=== PATIENT | male | born 1990 | race Caucasian/White ===

== ENCOUNTER 2017-07-27 16:17 | Emergency (ER) | payer MEDICAID ==
[~2017-07-27] VITALS: Ht 172.7 cm; Wt 136.0 kg
[~2017-07-27 16:17] MED LIST: BUPR1FIL3 SL; CLON-527 PO; DOCU100C23 PO; HYDR-3972 PO; IBUP-1986 PO; QUET25TA34 PO; VENL-190; ZOLP10TA5 PO
[2017-07-27 16:27] VITALS: BP 129/83
[2017-07-27] MEDS ORDERED: BUPIVAcaine/PF 2.5 mg/ml (0.25%) 30ml vial IJ ONE (17:40)
[2017-07-27] MEDS ORDERED: TETanus/Pertussis (Acell)/Diphther VAC/PF (Tdap-Adult) 0.5ml syringe IM ONE (17:40)
[2017-07-27] MEDS ORDERED: CEPH500C5 PO (18:34)
== END 2017-07-27 18:57 | disposition home or self-care (01) ==
LOC: ER 16:17
DX: S61.217D Laceration without foreign body of left little finger without damage to nail, subsequent encounter (principal); G89.29 Other chronic pain; F12.10 Cannabis abuse, uncomplicated; F15.10 Other stimulant abuse, uncomplicated; F11.10 Opioid abuse, uncomplicated; Z56.0 Unemployment, unspecified; Z98.890 Other specified postprocedural states; Z88.2 Allergy status to sulfonamides; Z88.8 Allergy status to other drugs, medicaments and biological substances; Z79.899 Other long term (current) drug therapy; W26.0XXD Contact with knife, subsequent encounter
CPT/HCPCS: 90471; 90715; 99283; A6255; J3490

== ENCOUNTER 2018-05-29 16:51 | Emergency (ER) | payer MEDICAID ==
[~2018-05-29] VITALS: Ht 182.9 cm; Wt 109.1 kg
[~2018-05-29 16:51] MED LIST changes: +CEPH500C5 PO; +DOCU-273 PO; -DOCU100C23 PO
[2018-05-29 17:07] VITALS: BP 138/67
== END 2018-05-29 17:48 | disposition home or self-care (01) ==
LOC: ER 16:52
DX: T65.891A Toxic effect of other specified substances, accidental (unintentional), initial encounter (principal); G89.29 Other chronic pain; F12.90 Cannabis use, unspecified, uncomplicated; F15.90 Other stimulant use, unspecified, uncomplicated; F11.90 Opioid use, unspecified, uncomplicated; Z56.0 Unemployment, unspecified; Z98.890 Other specified postprocedural states; Z88.2 Allergy status to sulfonamides; Z88.5 Allergy status to narcotic agent; Z88.8 Allergy status to other drugs, medicaments and biological substances; Y92.89 Other specified places as the place of occurrence of the external cause
CPT/HCPCS: 99281

== ENCOUNTER 2018-05-31 22:33 | Emergency (ER) | payer MEDICAID ==
[~2018-05-31] VITALS: Ht 177.8 cm; Wt 120.0 kg
[2018-05-31] MEDS ORDERED: QUET25TA PO (23:35)
[2018-05-31] MEDS ORDERED: clonazePAM 1mg tablet PO ONE (23:45)
[2018-05-31 23:48] VITALS: BP 133/75
== END 2018-06-01 00:02 | disposition home or self-care (01) ==
LOC: ER 22:35
DX: F32.9 Major depressive disorder, single episode, unspecified (principal); F41.9 Anxiety disorder, unspecified; F12.90 Cannabis use, unspecified, uncomplicated; F15.90 Other stimulant use, unspecified, uncomplicated; F11.90 Opioid use, unspecified, uncomplicated; G89.29 Other chronic pain; Z56.0 Unemployment, unspecified; Z88.2 Allergy status to sulfonamides; Z88.8 Allergy status to other drugs, medicaments and biological substances; Z79.899 Other long term (current) drug therapy
CPT/HCPCS: 99284

== ENCOUNTER 2018-06-29 13:46 | Emergency (ER) | payer MEDICAID ==
[~2018-06-29] VITALS: Ht 177.8 cm; Wt 108.0 kg
[~2018-06-29 13:46] MED LIST changes: +CEPH-571 PO; +QUET25TA PO
[2018-06-29 13:51] VITALS: BP 133/77
== END 2018-06-29 14:15 | disposition left against medical advice (07) ==
LOC: ER 13:47
DX: R22.2 Localized swelling, mass and lump, trunk (principal); G89.29 Other chronic pain; M54.9 Dorsalgia, unspecified; F12.90 Cannabis use, unspecified, uncomplicated; F15.90 Other stimulant use, unspecified, uncomplicated; F11.90 Opioid use, unspecified, uncomplicated; Z56.0 Unemployment, unspecified; Z88.6 Allergy status to analgesic agent; Z88.2 Allergy status to sulfonamides; Z88.8 Allergy status to other drugs, medicaments and biological substances
CPT/HCPCS: 99281

== ENCOUNTER 2018-07-18 08:56 | Emergency (ER) | payer MEDICAID ==
[~2018-07-18] VITALS: Ht 175.3 cm; Wt 109.1 kg
[2018-07-18 09:13] VITALS: BP 129/77
--- NOTE | 2018-07-18 09:31 | NUR ---
per triage nurse, she said she felt that the pt was "off" and not following direction, I let Dr. Franklin know of this feeling, he states he will address
[2018-07-18] MEDS ORDERED: acetaminophen 325mg tablet PO ONE (09:45)
[2018-07-18] MEDS ORDERED: TETanus/Pertussis (Acell)/Diphther VAC/PF (Tdap-Adult) 0.5ml syringe IM ONE (09:45)
== END 2018-07-18 10:54 | disposition home or self-care (01) ==
LOC: ER 08:57
DX: S06.0X0A Concussion without loss of consciousness, initial encounter (principal); S01.01XA Laceration without foreign body of scalp, initial encounter; G89.29 Other chronic pain; F12.90 Cannabis use, unspecified, uncomplicated; F15.90 Other stimulant use, unspecified, uncomplicated; F11.90 Opioid use, unspecified, uncomplicated; Z56.0 Unemployment, unspecified; Z98.890 Other specified postprocedural states; Z88.2 Allergy status to sulfonamides; Z88.8 Allergy status to other drugs, medicaments and biological substances; Z79.899 Other long term (current) drug therapy; Y04.2XXA Assault by strike against or bumped into by another person, initial encounter; Y93.89 Activity, other specified; Y92.89 Other specified places as the place of occurrence of the external cause; Y99.8 Other external cause status
CPT/HCPCS: 70450; 70486; 90471; 90715; 99284

== ENCOUNTER 2018-07-25 07:11 | Emergency (ER) | payer MEDICAID ==
[~2018-07-25] VITALS: Ht 177.8 cm; Wt 106.0 kg
[2018-07-25 07:16] VITALS: BP 122/74
[2018-07-25] MEDS ORDERED: HYDROcodone/acetaminophen 10/325mg tab PO ONE (07:45)
[2018-07-25] MEDS ORDERED: HYDR-4353 PO (07:49)
== END 2018-07-25 08:01 | disposition home or self-care (01) ==
LOC: ER 07:13
DX: S39.012A Strain of muscle, fascia and tendon of lower back, initial encounter (principal); S00.11XA Contusion of right eyelid and periocular area, initial encounter; R23.4 Changes in skin texture; G89.29 Other chronic pain; F12.90 Cannabis use, unspecified, uncomplicated; F15.90 Other stimulant use, unspecified, uncomplicated; F11.90 Opioid use, unspecified, uncomplicated; Z56.0 Unemployment, unspecified; Z98.890 Other specified postprocedural states; Z88.2 Allergy status to sulfonamides; Z88.8 Allergy status to other drugs, medicaments and biological substances; Z79.899 Other long term (current) drug therapy; X58.XXXA Exposure to other specified factors, initial encounter; Y93.89 Activity, other specified; Y92.89 Other specified places as the place of occurrence of the external cause; Y99.8 Other external cause status
CPT/HCPCS: 99283

== ENCOUNTER 2018-08-03 06:32 | Emergency (ER) | payer MEDICAID ==
[~2018-08-03] VITALS: Ht 170.2 cm; Wt 70.0 kg
[~2018-08-03 06:32] MED LIST changes: -CEPH500C5 PO; +HYDR-4353 PO
[2018-08-03 07:20] VITALS: BP 125/76
== END 2018-08-03 07:22 | disposition home or self-care (01) ==
LOC: ER 06:33
DX: R22.2 Localized swelling, mass and lump, trunk (principal); G89.29 Other chronic pain; F12.90 Cannabis use, unspecified, uncomplicated; F15.90 Other stimulant use, unspecified, uncomplicated; F11.90 Opioid use, unspecified, uncomplicated; Z98.890 Other specified postprocedural states; Z88.2 Allergy status to sulfonamides; Z88.8 Allergy status to other drugs, medicaments and biological substances; Z79.899 Other long term (current) drug therapy; Z56.0 Unemployment, unspecified
CPT/HCPCS: 99281; 99283

== ENCOUNTER 2018-09-09 14:29 | Emergency (ER) | payer MEDICAID ==
[~2018-09-09] VITALS: Ht 177.8 cm; Wt 109.1 kg
[~2018-09-09 14:29] MED LIST changes: -HYDR-4353 PO
[2018-09-09 14:57] VITALS: BP 130/70
[2018-09-09] MEDS ORDERED: HYDROcodone/acetaminophen 10/325mg tab PO ONE (15:30)
[2018-09-09] MEDS ORDERED: ketorolac trometh inj. 60 MG/2 ML VIAL IM ONE (15:30)
== END 2018-09-09 16:11 | disposition home or self-care (01) ==
LOC: ER 14:30
DX: S39.012A Strain of muscle, fascia and tendon of lower back, initial encounter (principal); G89.29 Other chronic pain; F12.90 Cannabis use, unspecified, uncomplicated; F15.90 Other stimulant use, unspecified, uncomplicated; F11.90 Opioid use, unspecified, uncomplicated; Z88.2 Allergy status to sulfonamides; Z88.8 Allergy status to other drugs, medicaments and biological substances; Z79.899 Other long term (current) drug therapy; Z56.0 Unemployment, unspecified; W18.39XA Other fall on same level, initial encounter; Y93.01 Activity, walking, marching and hiking; Y92.89 Other specified places as the place of occurrence of the external cause; Y99.8 Other external cause status
CPT/HCPCS: 96372; 99284; J1885

== ENCOUNTER 2018-09-11 02:12 | Emergency (ER) | payer MEDICAID ==
[~2018-09-11] VITALS: Ht 167.6 cm; Wt 80.0 kg
[2018-09-11] MEDS ORDERED: ketorolac trometh inj. 60 MG/2 ML VIAL IM ONE (02:40)
[2018-09-11 03:03] VITALS: BP 131/84
== END 2018-09-11 03:08 | disposition home or self-care (01) ==
LOC: ER 02:13
DX: K08.89 Other specified disorders of teeth and supporting structures (principal); R51 Headache; G89.29 Other chronic pain; F11.10 Opioid abuse, uncomplicated; F41.9 Anxiety disorder, unspecified; F12.10 Cannabis abuse, uncomplicated; F15.10 Other stimulant abuse, uncomplicated; Z56.0 Unemployment, unspecified; Z88.2 Allergy status to sulfonamides; Z88.8 Allergy status to other drugs, medicaments and biological substances
CPT/HCPCS: 96372; 99283; J1885

== ENCOUNTER 2018-10-23 02:54 | Emergency (ER) | payer MEDICAID ==
[~2018-10-23] VITALS: Ht 175.3 cm; Wt 78.0 kg
[2018-10-23 03:04] VITALS: BP 119/83
[2018-10-23] MEDS ORDERED: ketorolac trometh inj. 60 MG/2 ML VIAL IM ONE (04:05)
[2018-10-23] MEDS ORDERED: acetaminophen 325mg tablet PO ONE (04:05)
[2018-10-23] MEDS ORDERED: ALPR2TAB2 PO (12:52)
[2018-10-23] MEDS ORDERED: AMPH20CA3 PO (12:52)
== END 2018-10-23 04:20 | disposition home or self-care (01) ==
LOC: ER 02:55
DX: S40.812A Abrasion of left upper arm, initial encounter (principal); S40.811A Abrasion of right upper arm, initial encounter; M54.5 Low back pain; M79.671 Pain in right foot; M79.604 Pain in right leg; M79.605 Pain in left leg; G89.29 Other chronic pain; F41.9 Anxiety disorder, unspecified; F12.90 Cannabis use, unspecified, uncomplicated; F15.90 Other stimulant use, unspecified, uncomplicated; F11.90 Opioid use, unspecified, uncomplicated; Z56.0 Unemployment, unspecified; Z98.890 Other specified postprocedural states; Z88.2 Allergy status to sulfonamides; Z88.8 Allergy status to other drugs, medicaments and biological substances; Z79.899 Other long term (current) drug therapy; Y04.8XXA Assault by other bodily force, initial encounter; Y93.89 Activity, other specified; Y92.89 Other specified places as the place of occurrence of the external cause; Y99.8 Other external cause status
CPT/HCPCS: 96372; 99283; J1885

== ENCOUNTER 2018-10-23 11:24 | Emergency (ER) | payer MEDICAID ==
[~2018-10-23] VITALS: Ht 175.3 cm; Wt 109.1 kg
[2018-10-23 11:31] VITALS: BP 134/87
[2018-10-23 12:31] LABS: BASOPHILS # (AUTO) 0.1 X10'3 (0-0.2); BASOPHILS % (AUTO) 0.7 % (0-1); EOSINOPHILS # (AUTO) 0.3 X10'3 (0-0.9); EOSINOPHILS % (AUTO) 3.1 % (0-6); HEMATOCRIT 45.2 % (42.0-52.0); HEMOGLOBIN 15.3 g/dl (14.0-17.9); LYMPHOCYTES # (AUTO) 1.7 X10'3 (1.1-4.8); LYMPHOCYTES % (AUTO) 20.9 % (21-51); MEAN CORPUSCULAR HEMOGLOBIN 30.7 PG (27.0-31.0); MEAN CORPUSCULAR HGB CONC 33.7 g/dL (33.0-36.5); MEAN CORPUSCULAR VOLUME 90.9 FL (78-98); MEAN PLATELET VOLUME 8.4 FL (7.4-10.4); MONOCYTES # (AUTO) 0.8 X10'3 (0-0.9); MONOCYTES % (AUTO) 9.8 % (2-12); NEUTROPHILS # (AUTO) 5.3 X10'3 (1.8-7.7); NEUTROPHILS % (AUTO) 65.5 % (42-75); PLATELET COUNT 244 X10'3 (140-440); RED BLOOD COUNT 4.97 X10'6 (4.70-6.10); RED CELL DISTRIBUTION WIDTH 13.3 % (11.5-14.5); WHITE BLOOD COUNT 8.1 X10'3 (4.5-11.0)
--- NOTE | 2018-10-23 12:36 | NUR ---
PT IS LYING QUIETLY ON GURNEY, RESP EVEN AND UNLABORED, WAITING TO BE EVALUATED
[2018-10-23 12:48] LABS: ALANINE AMINOTRANSFERASE 42 U/L (12-78); ALBUMIN 4.3 G/DL (3.4-5.0); ALBUMIN/GLOBULIN RATIO 1.1 (1.1-1.5); ALKALINE PHOSPHATASE 68 IU/L (46-116); ANION GAP 12 (8-16); ASPARTATE AMINO TRANSFERASE 39 U/L (10-37); BILIRUBIN,TOTAL 0.9 MG/DL (0.1-1.0); BLOOD UREA NITROGEN 17 MG/DL (7-18); BUN/CREATININE RATIO 17.9 (5.4-32.0); CALCIUM 9.6 MG/DL (8.5-10.1); CHLORIDE 104 MMOL/L (99-107); CREATININE 0.95 MG/DL (0.60-1.10); ETHANOL < 0.010 GM/DL (0.0-0.010); GLUCOSE 93 MG/DL (70-104); POTASSIUM 3.8 MMOL/L (3.5-5.1); SODIUM 139 MMOL/L (135-145); TOTAL CARBON DIOXIDE 22.6 MMOL/L (24-32); TOTAL PROTEIN 8.1 G/DL (6.4-8.2); eGFR > 90 ML/MIN
[2018-10-23] MEDS ORDERED: ALPR2TAB2 PO (12:52)
[2018-10-23] MEDS ORDERED: AMPH20CA3 PO (12:52)
--- NOTE | 2018-10-23 13:05 | NUR ---
pt denies SI/HI thoughts/plan, would like to start taking adderol and xanax again, pt said he was "pretty heated" when he first came here, but feels better, gave pt sandwich, juice, nicolle well, no n/v, pt aware UA needed, when medically cleared will be evaluated by clinician from [facility]
[2018-10-23 13:41] LABS: URINE AMPHETAMINE SCREEN POSITIVE (Neg); URINE BARBITUATE SCREEN NEGATIVE (Neg); URINE BENZODIAZEPINES SCREEN NEGATIVE (Neg); URINE CANNABINOID SCREEN POSITIVE (Neg); URINE COCAINE SCREEN NEGATIVE (Neg); URINE METHADONE SCREEN NEGATIVE (Neg); URINE OPIATE SCREEN NEGATIVE (Neg); URINE PHENCYCLIDINE SCREEN NEGATIVE (Neg)
--- NOTE | 2018-10-23 14:18 | NUR ---
PER [employer] PT HAS LEFT, Frank GORDILLO AWARE
== END 2018-10-23 14:21 | disposition left against medical advice (07) ==
LOC: ER 11:24
DX: F41.9 Anxiety disorder, unspecified (principal); K59.00 Constipation, unspecified; F42.8 Other obsessive-compulsive disorder; G89.29 Other chronic pain; F12.90 Cannabis use, unspecified, uncomplicated; F15.90 Other stimulant use, unspecified, uncomplicated; F11.90 Opioid use, unspecified, uncomplicated; Z88.2 Allergy status to sulfonamides; Z88.8 Allergy status to other drugs, medicaments and biological substances; Z79.899 Other long term (current) drug therapy; Z56.0 Unemployment, unspecified
CPT/HCPCS: 36415; 80053; 80305; 80320; 85025; 99284

== ENCOUNTER 2018-11-08 22:01 | Emergency (ER) | payer MEDICAID ==
[~2018-11-08] VITALS: Ht 177.8 cm; Wt 100.0 kg
[~2018-11-08 22:01] MED LIST changes: +ALPR2TAB2 PO; +AMPH20CA3 PO; -BUPR1FIL3 SL; -CEPH-571 PO; -CLON-527 PO; -DOCU-273 PO; -HYDR-3972 PO; -IBUP-1986 PO; -QUET25TA PO; -QUET25TA34 PO; -VENL-190; -ZOLP10TA5 PO
[2018-11-08 23:53] VITALS: BP 120/82
== END 2018-11-09 00:12 | disposition home or self-care (01) ==
LOC: ER 22:02
DX: R40.0 Somnolence (principal); G89.29 Other chronic pain; F41.9 Anxiety disorder, unspecified; F12.90 Cannabis use, unspecified, uncomplicated; F15.90 Other stimulant use, unspecified, uncomplicated; F11.90 Opioid use, unspecified, uncomplicated; Z98.890 Other specified postprocedural states; Z56.0 Unemployment, unspecified; Z88.2 Allergy status to sulfonamides; Z88.8 Allergy status to other drugs, medicaments and biological substances; Z79.899 Other long term (current) drug therapy
CPT/HCPCS: 99283

== ENCOUNTER 2018-11-14 19:54 | Emergency (ER) | payer MEDICAID ==
[~2018-11-14] VITALS: Ht 175.3 cm; Wt 100.0 kg
[2018-11-14 20:03] VITALS: BP 102/58
--- NOTE | 2018-11-14 21:14 | NUR ---
PT IS NOT BEING COMPLIENT WITH ASSESSMENT, HE'S REFUSING TO ANSWER QUESTIONS STATING "I ALREADY TOLD THE DOCTOR, I DONT HAVE TO FUCKING TELL YOU." SECURITY WAS CALLED TO THE BEDSIDE BECUASE PT WAS DEMONSTRATING AGRESSIVE BEHAVIOR.
--- NOTE | 2018-11-14 21:20 | NUR ---
PREET STATED [facility] AND [facility] HAD NO RECORD OF THE PATIENT BEING THERE, NOR WAS HE BLACKLISTED.
== END 2018-11-14 21:38 | disposition home or self-care (01) ==
LOC: ER 19:54
DX: R63.0 Anorexia (principal); G89.29 Other chronic pain; F41.9 Anxiety disorder, unspecified; F12.90 Cannabis use, unspecified, uncomplicated; F11.90 Opioid use, unspecified, uncomplicated; F15.90 Other stimulant use, unspecified, uncomplicated; Z13.89 Encounter for screening for other disorder; Z00.8 Encounter for other general examination; Z88.2 Allergy status to sulfonamides; Z88.8 Allergy status to other drugs, medicaments and biological substances; Z79.899 Other long term (current) drug therapy; Z60.2 Problems related to living alone; Z59.0 Homelessness; Z56.0 Unemployment, unspecified; Z98.890 Other specified postprocedural states
CPT/HCPCS: 99281

== ENCOUNTER 2018-11-23 01:36 | Emergency (ER) | payer MEDICAID ==
[~2018-11-23] VITALS: Ht 172.7 cm; Wt 90.9 kg
--- NOTE | 2018-11-23 01:55 | NUR ---
PT CALLED FOR TRIAGE AND FOUNDINTHE BATHROOM LYING ON THE FLOOR . PT REQUIRED SECURITY AND ADTL STAFF TO GET OFF THE FLOOR .
--- NOTE | 2018-11-23 02:14 | NUR ---
PT REFUSED ASSESSMENT AND VITAL SIGNS, PT REFUSED TO WALK FROM LOBBY TO TRIAGE ROOM FOR EVALUATION BY PHYSICIAN. PT ESCORTED OFF PROPERTY DUE TO REFUSE OF CARE.
== END 2018-11-23 02:16 | disposition left against medical advice (07) ==
LOC: ER 01:37
DX: M54.9 Dorsalgia, unspecified (principal); M79.673 Pain in unspecified foot; F41.9 Anxiety disorder, unspecified; Z53.21 Procedure and treatment not carried out due to patient leaving prior to being seen by health care provider

== ENCOUNTER 2018-12-06 02:20 | Emergency (ER) | payer MEDICAID ==
[~2018-12-06] VITALS: Ht 175.3 cm; Wt 95.0 kg
[2018-12-06 02:26] VITALS: BP 116/78
[2018-12-06] MEDS ORDERED: acetaminophen 325mg tablet PO ONE (03:10)
[2018-12-06] MEDS ORDERED: ibuprofen tablet 400 MG TABLET PO ONE (03:10)
[2018-12-06] MEDS ORDERED: orphenadrine citrate 60mg/2ml inj. IM ONE (03:10)
== END 2018-12-06 03:29 | disposition home or self-care (01) ==
LOC: ER 02:21
DX: M25.511 Pain in right shoulder (principal); G89.29 Other chronic pain; F12.90 Cannabis use, unspecified, uncomplicated; F15.90 Other stimulant use, unspecified, uncomplicated; F11.90 Opioid use, unspecified, uncomplicated; Z98.890 Other specified postprocedural states; Z60.2 Problems related to living alone; Z59.0 Homelessness; Z56.0 Unemployment, unspecified; Z88.2 Allergy status to sulfonamides; Z88.8 Allergy status to other drugs, medicaments and biological substances; Z79.899 Other long term (current) drug therapy
CPT/HCPCS: 96372; 99283; J2360

== ENCOUNTER 2018-12-06 17:46 | Emergency (ER) | payer MEDICAID ==
[~2018-12-06] VITALS: Ht 177.8 cm; Wt 93.0 kg
[2018-12-06 17:59] VITALS: BP 122/67
[2018-12-06] MEDS ORDERED: ibuprofen 200mg tablet PO ONE (18:20)
== END 2018-12-06 18:40 | disposition home or self-care (01) ==
LOC: ER 17:47
DX: M25.511 Pain in right shoulder (principal); G89.29 Other chronic pain; F12.90 Cannabis use, unspecified, uncomplicated; F15.90 Other stimulant use, unspecified, uncomplicated; F11.90 Opioid use, unspecified, uncomplicated; F41.9 Anxiety disorder, unspecified; Z98.890 Other specified postprocedural states; Z60.2 Problems related to living alone; Z59.0 Homelessness; Z56.0 Unemployment, unspecified; Z88.2 Allergy status to sulfonamides; Z88.6 Allergy status to analgesic agent; Z88.8 Allergy status to other drugs, medicaments and biological substances; Z79.899 Other long term (current) drug therapy; X50.1XXA Overexertion from prolonged static or awkward postures, initial encounter; Y93.89 Activity, other specified; Y92.89 Other specified places as the place of occurrence of the external cause; Y99.8 Other external cause status
CPT/HCPCS: 73030; 99283

== ENCOUNTER 2018-12-23 00:14 | Emergency (ER) | payer MEDICAID ==
[~2018-12-23] VITALS: Ht 177.8 cm; Wt 78.0 kg
[2018-12-23] MEDS ORDERED: ibuprofen tablet 400 MG TABLET PO ONE (01:00)
[2018-12-23 01:06] VITALS: BP 130/80
== END 2018-12-23 01:10 | disposition home or self-care (01) ==
LOC: ER 00:15
DX: Z00.00 Encounter for general adult medical examination without abnormal findings (principal); G89.29 Other chronic pain; M54.9 Dorsalgia, unspecified; F41.9 Anxiety disorder, unspecified; F12.90 Cannabis use, unspecified, uncomplicated; F15.90 Other stimulant use, unspecified, uncomplicated; F14.90 Cocaine use, unspecified, uncomplicated; Z59.0 Homelessness; Z56.0 Unemployment, unspecified; Z88.6 Allergy status to analgesic agent; Z88.2 Allergy status to sulfonamides; Z88.8 Allergy status to other drugs, medicaments and biological substances
CPT/HCPCS: 99281

== ENCOUNTER 2018-12-30 20:23 | Emergency (ER) | payer MEDICAID ==
[~2018-12-30] VITALS: Ht 175.3 cm; Wt 86.4 kg
[2018-12-30] MEDS ORDERED: diphenhydrAMINE 50 mg/ml inj IM STA (20:52)
[2018-12-30] MEDS ORDERED: LORazepam 2 mg/ml vial IM STA (20:52)
[2018-12-30] MEDS ORDERED: haloperidol lactate 5mg/ml inj IM STA (20:52)
--- NOTE | 2018-12-30 20:54 | NUR ---
PT MOVED TO ROOM 15 AND MD STATED TO ORDER MEDICATIONS SO DONE.
[2018-12-30] MEDS ORDERED: diphenhydrAMINE 50 mg/ml inj IM ONE (21:00)
[2018-12-30] MEDS ORDERED: haloperidol lactate 5mg/ml inj IM ONE (21:00)
[2018-12-30 21:47] LABS: BASOPHILS # (AUTO) 0.1 X10'3 (0-0.2); BASOPHILS % (AUTO) 0.6 % (0-1); EOSINOPHILS # (AUTO) 0.1 X10'3 (0-0.9); EOSINOPHILS % (AUTO) 1.1 % (0-6); HEMATOCRIT 45.9 % (42.0-52.0); HEMOGLOBIN 15.3 g/dl (14.0-17.9); LYMPHOCYTES # (AUTO) 1.2 X10'3 (1.1-4.8); LYMPHOCYTES % (AUTO) 15.3 % (21-51); MEAN CORPUSCULAR HEMOGLOBIN 30.8 PG (27.0-31.0); MEAN CORPUSCULAR HGB CONC 33.3 g/dL (33.0-36.5); MEAN CORPUSCULAR VOLUME 92.6 FL (78-98); MEAN PLATELET VOLUME 8.8 FL (7.4-10.4); MONOCYTES # (AUTO) 0.5 X10'3 (0-0.9); MONOCYTES % (AUTO) 6.2 % (2-12); NEUTROPHILS # (AUTO) 6.2 X10'3 (1.8-7.7); NEUTROPHILS % (AUTO) 76.8 % (42-75); PLATELET COUNT 241 X10'3 (140-440); RED BLOOD COUNT 4.96 X10'6 (4.70-6.10); WHITE BLOOD COUNT 8.1 X10'3 (4.5-11.0)
[2018-12-30 21:50] LABS: CLARITY,URINE CLEAR (Clear); COLOR,URINE YELLOW (Yellow); GLUCOSE, URINE NEGATIVE (Neg); KETONES,URINE NEGATIVE (Neg); LEUKOCYTE ESTERASE ,URINE NEGATIVE (Neg); NITRITES, URINE NEGATIVE (Neg); OCCULT BLOOD,URINE NEGATIVE (Neg); PROTEIN,URINE NEGATIVE (Neg); UROBILINOGEN,URINE 0.2 E.U/dL (0.2-1.0)
[2018-12-30 21:52] LABS: ALANINE AMINOTRANSFERASE 95 U/L (12-78); ALBUMIN 3.9 G/DL (3.4-5.0); ALBUMIN/GLOBULIN RATIO 1.1 (1.1-1.5); ALKALINE PHOSPHATASE 76 IU/L (46-116); ANION GAP 8 (8-16); ASPARTATE AMINO TRANSFERASE 37 U/L (10-37); BILIRUBIN,TOTAL 0.4 MG/DL (0.1-1.0); BLOOD UREA NITROGEN 14 MG/DL (7-18); BUN/CREATININE RATIO 15.1 (5.4-32.0); CALCIUM 9.4 MG/DL (8.5-10.1); CHLORIDE 107 MMOL/L (99-107); CREATININE 0.93 MG/DL (0.60-1.10); GLUCOSE 110 MG/DL (70-104); POTASSIUM 5.1 MMOL/L (3.5-5.1); SODIUM 144 MMOL/L (135-145); TOTAL CARBON DIOXIDE 29.1 MMOL/L (24-32); TOTAL PROTEIN 7.5 G/DL (6.4-8.2); eGFR > 90 ML/MIN
[2018-12-30 21:55] LABS: URINE AMPHETAMINE SCREEN NEGATIVE (Neg); URINE BARBITUATE SCREEN NEGATIVE (Neg); URINE BENZODIAZEPINES SCREEN NEGATIVE (Neg); URINE CANNABINOID SCREEN POSITIVE (Neg); URINE COCAINE SCREEN NEGATIVE (Neg); URINE METHADONE SCREEN NEGATIVE (Neg); URINE OPIATE SCREEN NEGATIVE (Neg); URINE PHENCYCLIDINE SCREEN NEGATIVE (Neg)
[2018-12-30 21:58] LABS: UA COLLECTION TYPE CLN CATCH MIDSTREAM
[2018-12-30 22:00] LABS: ETHANOL < 0.010 GM/DL (0.0-0.010)
[2018-12-30] MEDS ORDERED: normal saline 1000ML IV soln IVB ONE (22:20)
[2018-12-30 22:43] LABS: CREATINE KINASE 65 U/L (39-308)
--- NOTE | 2018-12-31 00:03 | NUR ---
pt is sleeping, vitals wnl, no s/s of distress noted.
--- NOTE | 2018-12-31 06:42 | NUR ---
RECEIVED REPORT FROM EDILIA BUTLER, INFORMED PT AND VS HAVE BEEN STABLE, PT IS CURRENTLY SLEEPING, RESPRIATIONS SPONTANEOUS, EVEN UNLABORED, NO S/S OF DISTRESS OR DISCOMFORT, PT IS CURRENTLY ON 1798, WILL CONTINUE TO MONITOR UNTIL [facility] EVALUATES PT FOR 5149 AND PLACEMENT
--- NOTE | 2018-12-31 07:06 | NUR ---
IRINA FAXED TO [facility]
--- NOTE | 2018-12-31 07:50 | NUR ---
GAVE PT A URINAL PER PT REQUEST, PT IS CALM AND COOPERATIVE DURING INTERACTION.
--- NOTE | 2018-12-31 08:31 | NUR ---
BREAKFAST TRAY PLACED IN ROOM BY FIELD ADMINISTRATOR, PT SITTING UP IN BED EATING NOW.
[2018-12-31 09:02] VITALS: BP 118/70
--- NOTE | 2018-12-31 09:14 | NUR ---
DURING EVALUATION OF PT PT REPORTS HE WAS AT [facility] IN THE LAST COUPLE MONTHS AND WAS DISCHARGE WITH MEDS BUT THEY WERE NOT AT PHARMACY WHEN HE WENT THERE. CALLED [facility] [place] AND THEY DID NOT SEND HIM HOME WITH ANY MEDS, ONLY GAVE HIM DOSE OF BUPROPION 150MG AND 300 MG ONCE AND ONE DOSE OF ATIVAN DURING STAY BUT NOT DISCHARGED HOME WITH ANY MEDICATIONS. PT WAS POLITE, CALM AND COOPERATIVE DURING INTERACTION, PT ATE HIS ENTIRE BREAKFAST TRAY
[2018-12-31] MEDS ORDERED: NO HOME MEDS (09:17)
--- NOTE | 2018-12-31 10:07 | NUR ---
RASHEL FROM [facility] IS AT BEDSIDE.
== END 2018-12-31 10:58 ==
LOC: ER 20:24
DX: R45.851 Suicidal ideations (principal); F23 Brief psychotic disorder; F12.10 Cannabis abuse, uncomplicated; G89.29 Other chronic pain; F41.9 Anxiety disorder, unspecified; F15.90 Other stimulant use, unspecified, uncomplicated; F11.90 Opioid use, unspecified, uncomplicated; Z56.0 Unemployment, unspecified; Z59.0 Homelessness; Z88.2 Allergy status to sulfonamides; Z79.899 Other long term (current) drug therapy
CPT/HCPCS: 36415; 80053; 80305; 80320; 81003; 82550; 82553; 84443; 85025; 93005; 96372; 99285; J1200; J1630; J2060

== ENCOUNTER 2019-01-25 02:55 | Emergency (ER) | payer MEDICAID ==
[~2019-01-25] VITALS: Ht 177.8 cm; Wt 90.0 kg
[~2019-01-25 02:55] MED LIST changes: -ALPR2TAB2 PO; -AMPH20CA3 PO; +NO HOME MEDS
[2019-01-25 02:58] VITALS: BP 138/64
== END 2019-01-25 04:51 | disposition left against medical advice (07) ==
LOC: ER 02:56
DX: R07.81 Pleurodynia (principal); Z53.21 Procedure and treatment not carried out due to patient leaving prior to being seen by health care provider; Z79.899 Other long term (current) drug therapy

== ENCOUNTER 2019-08-24 07:03 | Emergency (ER) | payer MEDICAID, OTHER ==
[~2019-08-24] VITALS: Ht 177.8 cm; Wt 103.0 kg
[2019-08-24 07:15] VITALS: BP 127/74
== END 2019-08-24 08:24 | disposition home or self-care (01) ==
LOC: ER 07:04
DX: M25.522 Pain in left elbow (principal); G89.29 Other chronic pain; F41.9 Anxiety disorder, unspecified; F12.90 Cannabis use, unspecified, uncomplicated; F15.90 Other stimulant use, unspecified, uncomplicated; F11.90 Opioid use, unspecified, uncomplicated; Z98.890 Other specified postprocedural states; Z60.2 Problems related to living alone; Z59.0 Homelessness; Z56.0 Unemployment, unspecified; Z88.2 Allergy status to sulfonamides; Z79.899 Other long term (current) drug therapy; X50.9XXA Other and unspecified overexertion or strenuous movements or postures, initial encounter; Y93.89 Activity, other specified; Y92.89 Other specified places as the place of occurrence of the external cause; Y99.8 Other external cause status
CPT/HCPCS: 73080; 99284

== ENCOUNTER 2020-03-25 10:57 | Emergency (ER) | payer MEDICAID ==
[~2020-03-25] VITALS: Ht 175.3 cm; Wt 122.7 kg
[2020-03-25] MEDS ORDERED: CETI1TAB PO (11:09)
[2020-03-25 11:15] VITALS: BP 125/86
== END 2020-03-25 11:20 | disposition home or self-care (01) ==
LOC: ER 10:57
DX: J34.89 Other specified disorders of nose and nasal sinuses (principal); R05 Cough; R50.9 Fever, unspecified; Z20.828 Contact with and (suspected) exposure to other viral communicable diseases; F17.200 Nicotine dependence, unspecified, uncomplicated; F12.90 Cannabis use, unspecified, uncomplicated; F15.90 Other stimulant use, unspecified, uncomplicated; F11.90 Opioid use, unspecified, uncomplicated; Z98.890 Other specified postprocedural states; Z60.2 Problems related to living alone; Z56.0 Unemployment, unspecified; Z59.0 Homelessness; Z88.2 Allergy status to sulfonamides; Z88.8 Allergy status to other drugs, medicaments and biological substances; Z79.899 Other long term (current) drug therapy
CPT/HCPCS: 36415; 87635; 99283

== ENCOUNTER 2020-11-12 19:34 | Emergency (ER) | payer MEDICAID ==
[~2020-11-12] VITALS: Ht 175.3 cm; Wt 113.6 kg
[~2020-11-12 19:34] MED LIST changes: +CETI1TAB PO
[2020-11-12 19:38] VITALS: BP 140/93
== END 2020-11-12 20:09 | disposition home or self-care (01) ==
LOC: ER 19:35
DX: R43.8 Other disturbances of smell and taste (principal); Z20.822 Contact with and (suspected) exposure to COVID-19; G89.29 Other chronic pain; F12.90 Cannabis use, unspecified, uncomplicated; F15.90 Other stimulant use, unspecified, uncomplicated; Z87.81 Personal history of (healed) traumatic fracture; Z56.0 Unemployment, unspecified; Z59.0 Homelessness; Z88.2 Allergy status to sulfonamides; Z88.8 Allergy status to other drugs, medicaments and biological substances; Z79.899 Other long term (current) drug therapy
CPT/HCPCS: 87635; 99283; C9803

== ENCOUNTER 2022-08-16 16:13 | Emergency (ER) | payer MEDICAID ==
[~2022-08-16] VITALS: Ht 177.8 cm; Wt 127.3 kg
[2022-08-16 16:30] LABS: BASOPHILS # (AUTO) 0.1 X10'3 (0-0.2); EOSINOPHILS # (AUTO) 0.3 X10'3 (0-0.9); EOSINOPHILS % (AUTO) 4.9 % (0-6); HEMATOCRIT 43.5 % (42.0-52.0); HEMOGLOBIN 14.6 g/dl (14.0-17.9); LYMPHOCYTES # (AUTO) 1.5 X10'3 (1.1-4.8); LYMPHOCYTES % (AUTO) 26.7 % (21-51); MEAN CORPUSCULAR HEMOGLOBIN 29.6 PG (27.0-31.0); MEAN CORPUSCULAR HGB CONC 33.5 g/dL (33.0-36.5); MEAN CORPUSCULAR VOLUME 88.4 FL (78-98); MEAN PLATELET VOLUME 8.6 FL (7.4-10.4); MONOCYTES # (AUTO) 0.4 X10'3 (0-0.9); NEUTROPHILS # (AUTO) 3.3 X10'3 (1.8-7.7); NEUTROPHILS % (AUTO) 60.4 % (42-75); PLATELET COUNT 251 X10'3 (140-440); RED BLOOD COUNT 4.92 X10'6 (4.70-6.10); RED CELL DISTRIBUTION WIDTH 13.8 % (11.5-14.5); WHITE BLOOD COUNT 5.5 X10'3 (4.5-11.0)
[2022-08-16 16:45] LABS: ALANINE AMINOTRANSFERASE 31 U/L (12-78); ALBUMIN 4.3 G/DL (3.4-5.0); ALBUMIN/GLOBULIN RATIO 1.2 (1.1-1.5); ALKALINE PHOSPHATASE 74 IU/L (46-116); ANION GAP 8 (8-16); ASPARTATE AMINO TRANSFERASE 20 U/L (10-37); BILIRUBIN,TOTAL 0.3 MG/DL (0.1-1.0); BLOOD UREA NITROGEN 23 MG/DL (7-18); BUN/CREATININE RATIO 27.7 (10.0-20.0); CALCIUM 9.6 MG/DL (8.5-10.1); CHLORIDE 105 MMOL/L (99-107); CREATININE 0.83 MG/DL (0.60-1.10); GLUCOSE 101 MG/DL (70-104); POTASSIUM 4.2 MMOL/L (3.5-5.1); SODIUM 142 MMOL/L (135-145); TOTAL CARBON DIOXIDE 28.7 MMOL/L (24-32); eGFR > 90 ML/MIN
[2022-08-16 16:54] LABS: MAGNESIUM 2.1 MG/DL (1.5-2.4)
[2022-08-16] MEDS ORDERED: PANT-47 PO (17:06)
[2022-08-16] MEDS ORDERED: mag hydrox/Alum hydrox/simeth 30ml oral suspension PO ONE (17:10)
[2022-08-16] MEDS ORDERED: pantoprazole 40mg Tablet.DR PO ONE (17:10)
[2022-08-16] MEDS ORDERED: LIDOcaine Viscous 15ml cup MM ONE (17:10)
[2022-08-16 17:37] VITALS: BP 115/79
== END 2022-08-16 17:27 | disposition home or self-care (01) ==
LOC: ER 16:14
DX: R07.89 Other chest pain (principal); F12.90 Cannabis use, unspecified, uncomplicated; F15.20 Other stimulant dependence, uncomplicated; Z88.2 Allergy status to sulfonamides; Z59.00 Homelessness unspecified; Z56.0 Unemployment, unspecified
CPT/HCPCS: 36415; 80053; 83735; 83880; 84484; 85025; 93005; 99284